=== PATIENT | female | born 1990 | race Caucasian/White ===

== ENCOUNTER 2017-10-16 12:25 | Emergency (ER) | payer SELFPAY ==
[2017-10-16 12:30] VITALS: BP 103/57; PULSE 80; RESP 18; TEMP 36.8; O2SAT 99; BMI 26.3
--- NOTE | 2017-10-16 12:35 | ED_ITS ---
HPI - Eye Problem <LAMONT Hardwick - Last Filed: 10/16/17 22:05> General Chief complaint: Eye Problems Stated complaint: something in left eye, blurry vision Time Seen by Provider: 10/16/17 12:34 History of Present Illness HPI Narrative: Healthy 26-year-old female here for complaint of discomfort to her left eye status post catching it on a corner of a folder that she was caring an hour prior to arrival. She states that it feels like a foreign body is in her eye. She reports slight blurriness to her left eye. She denies any other injuries. She reports that her tetanus is up-to-date. Positive watering to the left eye. No other concerns or complaints. MD chief complaint: eye pain Related Data Patient tetanus UTD: Yes Previous Rx's Medication Instructions Recorded erythromycin 0.5 inch EYE-LEFT QID 5 Days #3.5 10/16/17 gram Allergies Allergy/AdvReac Type Severity Reaction Status Date / Time No Known Drug Allergies Allergy Verified 10/16/17 12:56 Review of Systems <LAMONT Hardwick - Last Filed: 10/16/17 22:05> Constitutional Denies chills, Denies fever(s), Denies lethargy and Denies weakness Eyes Reports irritation ENT Ears, Nose, Mouth, and Throat: Denies change in voice, Denies neck pain and Denies sore throat Cardiovascular Denies chest pain, Denies irregular heart rhythm, Denies lightheadedness, Denies palpitations, Denies dyspnea, Denies dyspnea on exertion and Denies orthopnea Respiratory Denies cough, Denies dyspnea, Denies dyspnea on exertion and Denies wheezing Gastrointestinal Gastrointestinal: Denies abdominal pain, Denies change in bowel habits, Denies diarrhea, Denies nausea and Denies vomiting Genitourinary Denies hematuria, Denies flank pain, Denies urinary incontinence and Denies urinary urgency Musculoskeletal Denies neck pain Integumentary/Breasts Denies pruritus, Denies erythema, Denies rash and Denies wounds Neurologic Denies confusion and Denies weakness Psychiatric Denies anxiety, Denies confusion, Denies depression, Denies homicidal ideation and Denies suicidal ideation Endocrine Denies palpitations Hematologic/Lymphatic Denies easy bruising Allergic/Immunologic Denies wheezing Exam <LAMONT Hardwick Last Filed: 10/16/17 22:05> Initial Vital Signs Initial Vital Signs: Vital Signs Temperature 98.2 F 10/16/17 12:30 Pulse Rate 80 10/16/17 12:30 Respiratory Rate 18 10/16/17 12:30 Blood Pressure 103/57 L 10/16/17 12:30 Pulse Oximetry 99 10/16/17 12:30 Const General: cooperative and well developed Nutritional Appearance: well nourished Orientation: alert, awake, oriented x3 and not confused [facility] Mouth: oral mucosae normal and moist mucous membranes Eyes Eyelids: eyelids normal Conjunctivae: conjunctival abnormality (Injected to left eye) left Cornea: corneas abnormal (Left eye with foreseen uptake and corneal abrasion to the 2:00 position of the left cornea no foreign bodies is seen. Orbit is intact ) on the left and fluorescein used Pupils: PERRL EOM: EOM intact bilaterally Resp Effort & Inspection: normal respiratory effort, able to speak in complete sentences, no respiratory distress and no use of accessory muscles Auscultation: clear to auscultation bilaterally, no rales, no rhonchi and no wheezes Cardio Rate: regular rate Rhythm: regular rhythm Heart Sounds: no click, no gallops, no murmurs and no rubs Skin General: no rashes or lesions noted, No jaundice and No petechiae Neuro General: alert, oriented x3, gait normal and no focal motor deficits Speech: speech normal <Rae Cooper DO - Last Filed: 10/17/17 12:15> Initial Vital Signs Initial Vital Signs: Vital Signs Temperature 98.2 F 10/16/17 12:30 Pulse Rate 80 10/16/17 12:30 Respiratory Rate 18 10/16/17 12:30 Blood Pressure 103/57 L 10/16/17 12:30 Pulse Oximetry 99 10/16/17 12:30 Course <LAMONT Hardwick - Last Filed: 10/16/17 22:05> Orders Ordered: Discontinued Medications Proparacaine HCl (Parcaine 0.5% Ophth [place]) 1 drops EYE-LEFT NOW ONE Stop: 10/16/17 13:32 Last Admin: 10/16/17 13:32 Dose: 1 drop Vital Signs - 8 hr 10/16/17 12:30 Temperature 98.2 F Pulse Rate 80 Respiratory Rate 18 Blood Pressure 103/57 L Pulse Oximetry 99 <Rae Cooper DO - Last Filed: 10/17/17 12:15> Orders Ordered: Discontinued Medications Proparacaine HCl (Parcaine 0.5% Ophth [place]) 1 drops EYE-LEFT NOW ONE Stop: 10/16/17 13:32 Last Admin: 10/16/17 13:32 Dose: 1 drop Vital Signs - 8 hr 10/16/17 12:30 Temperature 98.2 F Pulse Rate 80 Respiratory Rate 18 Blood Pressure 103/57 L Pulse Oximetry 99 MDM - Eye Problem <LAMONT Hardwick - Last Filed: 10/16/17 22:05> MDM Narrative Medical decision making narrative: Fluorescein exam shows corneal abrasion to the left cornea at 2:00 position. No foreign bodies. Orbit is intact. Visual acuity is normal. Tetanus is up-to-date. She is placed on erythromycin ophthalmological ointment to prevent subsequent infection. [id number] Tylenol or Motrin as needed for any discomfort. Follow up with primary care provider. Return emergency room for any worsening symptoms. Discharge Plan Departure Patient Disposition: Home, Self-Care Clinical Impression: Corneal abrasion Discharge Date/Time: 10/16/17 14:14 Interventions: ED Discharge Assessment Last Done: 10/16/17 14:13 Instructions: DI for Corneal Abrasion Activity Restrictions/Additional Instructions: Eye exam today shows that you have a corneal abrasion to the left eye. You have been placed on an antibiotic ointment to prevent infection use as directed. Use [id number] Tylenol or Motrin as needed for discomfort. Follow up with her primary care provider next week for re-evaluation. For any worsening symptoms return to the emergency room. Prescription was electronically sent to your chosen pharmacy. Prescriptions: New erythromycin 5 mg/gram (0.5 %) ointment 0.5 inch EYE-LEFT QID 5 Days Qty: 3.5 RF: 0 Referrals: [facility] [Provider Group] Stand Alone Forms: Work/School Restrictions <Rae Cooper DO - Last Filed: 10/17/17 12:15> Cosign ED Attending Coskonradature Attestation: I was immediately available in the department for consultation. Documentation has been reviewed. I agree with assessment and plan.
[2017-10-16] MEDS: PROPARACAINE 0.5% OPHTH SOL 1 DROPS EYE-LEFT (13:32)
[2017-10-16 14:03] VITALS: BP 107/65; PULSE 63; RESP 12; O2SAT 100
== END 2017-10-16 14:14 | disposition home or self-care (01) ==
PROVIDERS: Emergency Provider Nurse Practitioner Family
DX: S05.02XA Injury of conjunctiva and corneal abrasion without foreign body, left eye, initial encounter (principal)
CPT/HCPCS: 99283